=== PATIENT | male | born 1980 | race American Indian/Alaskan Native ===

== ENCOUNTER 2019-01-07 02:05 | Emergency (ER) | payer SELFPAY ==
[2019-01-07] MEDS ORDERED: TYLENOL PO ONE (03:57)
[2019-01-07] MEDS ORDERED: BOOSTRIX IM ONE (03:57)
--- NOTE | 2019-01-07 04:54 | Cat Scan Report ---
Head CT without intravenous contrast INDICATION: Loss of consciousness COMPARISON: None FINDINGS: The ventricles are normal in size and position. No hemorrhage or extra-axial fluid collecti on. No edema or mass effect. No focal infarct seen. Portions of the sinuses visualized are clear. No skull fracture identified. IMPRESSION: Negative head CT Automated exposure control was utilized to diminish radiation dose Signer Name: Epifanio Garcia MD Signed: 01/07/2019 4:50 AM Workstation Name: [id number]
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
[2019-01-07] MEDS ORDERED: NORCO 5/325 ONE (06:28)
[2019-01-07] MEDS ORDERED: ZOFRAN ODT ONE (06:28)
[2019-01-07] MEDS ORDERED: ZOFRAN ODT PO ONE (06:31)
[2019-01-07] MEDS ORDERED: NORCO 5/325 PO ONE (06:31)
== END 2019-01-07 06:39 | disposition home or self-care (01) ==
LOC: ED 02:05
DX: S01.01XA Laceration without foreign body of scalp, initial encounter (principal); G43.009 Migraine without aura, not intractable, without status migrainosus; M79.601 Pain in right arm; M79.602 Pain in left arm; Y04.8XXA Assault by other bodily force, initial encounter; Y93.89 Activity, other specified; Y92.89 Other specified places as the place of occurrence of the external cause; Y99.8 Other external cause status
CPT/HCPCS: 70450; 90715; 96372; Q0162